=== PATIENT | female | born 1995 | race Caucasian/White ===

== ENCOUNTER 2017-01-17 22:13 | Emergency (ER) | payer BC ==
--- NOTE | 2017-01-18 00:15 | ER Document Report ---
ED Medical Screen (RME) - General Stated Complaint: POSSIBLE ABCESS Time seen by provider: 00:10 Mode of Arrival: Ambulatory Information source: Patient Notes: 21-year-old female presents to ED for an abscess to her right lower abdomen she first noticed at 8 PM today. States she felt like she had a fever couple hours after that but she did not take her temperature. She's had abscesses before. Temperature is 99.1 in RME. Last menstrual period 12/28/2016. Patient states she is on Adderall and took that first thing this morning I have greeted and performed a rapid initial assessment of this patient. A comprehensive ED assessment and evaluation of the patient, analysis of test results and completion of medical decision making process will be conducted by an additional ED providers. - Related Data Allergies/Adverse Reactions: No Known Allergies Allergy (Verified 01/18/17 00:10) Physical Exam - Vital signs Vitals: Temp Pulse Resp BP Pulse Ox 99.1 F 126 H 18 111/73 99 01/17/17 23:04 01/17/17 23:04 01/17/17 23:04 01/17/17 23:04 01/17/17 23:04 Course - Vital Signs Vital signs: Temp Pulse Resp BP Pulse Ox 99.1 F 126 H 18 111/73 99 01/17/17 23:04 01/17/17 23:04 01/17/17 23:04 01/17/17 23:04 01/17/17 23:04
[2017-01-18] MEDS ORDERED: IBUPROFEN 600 MG TABLET PO ONE (00:16)
[2017-01-18] MEDS ORDERED: CLINDAMYCIN 600 MG/D5W RTU 50 ML IV ONE (00:26)
[2017-01-18] MEDS ORDERED: DEXAMETHASONE SOD PHOS INJ 10 MG/1 ML VIAL IV ONE (00:26)
[2017-01-18] MEDS ORDERED: MORPHINE SULFATE 10 MG/ML INJ IV ONE (00:26)
[2017-01-18] MEDS ORDERED: NORMAL SALINE 1000 ML 1,000 ML IV ONE (01:58)
--- NOTE | 2017-01-18 03:25 | ER Document Report ---
ED General - General Chief Complaint: Abscess Stated Complaint: POSSIBLE ABCESS Mode of Arrival: Ambulatory Notes: Patient is a 21 year old female presents with complaint of pain and swelling to right labia. She's had this once before and received antibiotics and steroids and relieved. She's never had a marsupialization performed. She's not had any fevers. No vomiting. No diarrhea. She says she feels as if her heart is beating fast. She denies any trauma or injuries to the vaginal area. No bleeding. No abnormal discharge. No other complaints at this time. No associated abdominal pain. TRAVEL OUTSIDE OF THE [place] IN LAST 30 DAYS: No - Related Data Allergies/Adverse Reactions: No Known Allergies Allergy (Verified 01/18/17 00:10) Home Medications: Current Home Medications Dextroamphetamine/Amphetamine [Adderall 20 mg Tablet] 1 tab PO QAM 01/18/17 [ History] Past Medical History - General Information source: Patient - Social History Smoking Status: Never Smoker Chew tobacco use (# tins/day): No Frequency of alcohol use: None Drug Abuse: None Family History: Reviewed & Not Pertinent Renal/ Medical History: Denies: Hx Peritoneal Dialysis Review of Systems - Review of Systems Notes: My Normal Review Basic REVIEW OF SYSTEMS: CONSTITUTIONAL : Denies fever, chills, or sweats. Denies recent illness. EENT: Denies eye, ear, throat, or mouth pain or symptoms. Denies nasal or sinus congestion. RESPIRATORY: Denies cough, cold, or chest congestion. Denies shortness of breath, difficulty breathing, or wheezing. GASTROINTESTINAL: Denies abdominal pain. Denies nausea, vomiting, or diarrhea. Denies constipation. Last BM: GENITOURINARY: Denies difficulty urinating, painful urination, burning, frequency, or blood in urine. FEMALE GENITOURINARY: Right-sided labial swelling. MUSCULOSKELETAL: Denies neck or back pain or joint pain or swelling. SKIN: Denies rash or skin lesions. NEUROLOGICAL: Denies altered mental status or loss of consciousness. Denies headache. Denies weakness or paralysis or loss of use of either side. Denies problems with gait or speech. Denies sensory or motor loss. ALL OTHER SYSTEMS REVIEWED AND NEGATIVE. Physical Exam - Vital signs Vitals: Temp Pulse Resp BP Pulse Ox 99.1 F 126 H 18 111/73 99 01/17/17 23:04 01/17/17 23:04 01/17/17 23:04 01/17/17 23:04 01/17/17 23:04 - Notes Notes: General Appearance: Well nourished, alert, cooperative, no acute distress, mild obvious discomfort. Vitals: reviewed, See vital signs table. Eyes: PERRL, EOMI, Conjuctiva clear Lungs: No wheezing, No rales, No rhonci, No accessory muscle use, good air exchange bilaterally. Heart: Tachycardic rate, Regular rythm, No murmur, no rub Abdomen: Normal BS, soft, No rigidity, No abdominal tenderness, No guarding, no rebound, no abdominal masses, no organomegaly Pelvic: Patient does have some swelling of the right labia. It is you more formed and swelling. She is mildly erythematous. It's not deep erythema. There is no palpable abscess. There is no localized inflamed Bartholin's gland that is seen to be drained. Extremities: strength 5/5 in all extremities, good pulses in all extremities, no swelling or tenderness in the extremities, no edema. Skin: warm, dry, appropriate color, no rash Neuro: speech clear, oriented x 3, normal affect, responds appropriately to questions. Course - Vital Signs Vital signs: Temp Pulse Resp BP Pulse Ox 99.1 F 146 H 14 103/68 100 01/17/17 23:04 01/18/17 00:16 01/18/17 03:01 01/18/17 03:01 01/18/17 03:01 - Transfer of Care Notes: 01/18/17 04:34 At this time I feel the patient safe to be discharged home. Her heart rate is much improved after pain medicine and fluids. She looks well. Also concerned because the labia is very uniformly swollen and not deep red acute expect with a infection affected cyst. Also place her on antibiotics. She's had this in the past and box have helped. It was a uniformly swollen and I did not see an actual incisable Bartholin's gland; therefore, I was concerned that this could be a hernia. I did obtain CT scan and there is no evidence of hernia. This summer for the patient safe to be discharged home. I strongly encouraged to return to ER immediately if she has fevers, increased swelling, or feels unwell. [facility]. She agrees with plan will be discharged home. Dictation of this chart was performed using voice recognition software; therefore, there may be some unintended grammatical errors. Discharge - Discharge Clinical Impression: Labial swelling Condition: Good Disposition: HOME, SELF-CARE Instructions: Oral Narcotic Medication ([facility]) Additional Instructions: PLease make appointment with the charge coordinator, Dr. Chen, for reevaluation. Please return to ER immediately if you have increased swelling, any fevers, you vomiting, diarrhea, or feel unwell. Prescriptions: Clindamycin HCl 300 mg PO ASDIR #56 capsule Hydrocodone/Acetaminophen [[place] 5-325 mg Tablet] 1 tab PO Q4 PRN #16 tablet PRN Reason: For [facility] Pain Forms: Return to Work Referrals: SHANNON CHEN MD [ACTIVE STAFF] - Follow up tomorrow
[2017-01-18 03:52] VITALS: BP 103/68
== END 2017-01-18 04:44 | disposition home or self-care (01) ==
LOC: ER 22:13
DX: N76.4 Abscess of vulva (principal); Z79.899 Other long term (current) drug therapy
CPT/HCPCS: 99283; 74176; J2270; J1100

== ENCOUNTER → 2018-12-28 | Outpatient (CLI) | payer OTHER ==
--- NOTE | 2018-12-28 17:18 | RADIOLOGY REPORT (SQ) ---
EXAM DESCRIPTION: C SP 4 OR 5 VIEWS COMPLETED DATE/TIME: 12/28/2018 4:49 pm REASON FOR STUDY: NECK PAIN M54.2 CERVICALGIA COMPARISON: None. NUMBER OF VIEWS: Five views. TECHNIQUE: AP, lateral, obliques and odontoid radiographic images acquired of the cervical spine. LIMITATIONS: None. FINDINGS: MINERALIZATION: Normal. ALIGNMENT: Anatomic. VERTEBRAE: Vertebral bodies of normal height. DISCS: No significant osteophytes or sclerosis. Disc height maintained. FORAMINA: No osteophytes or foraminal narrowing. LATERAL AND POSTERIOR ELEMENTS: Facets, lateral masses and spinous processes without significant find ings. HARDWARE: None in the spine. SOFT TISSUES: No masses or calcifications. Lung apices clear. OTHER: No other significant finding. IMPRESSION: NO SIGNIFICANT RADIOGRAPHIC FINDING IN THE CERVICAL SPINE. TECHNICAL DOCUMENTATION: JOB ID: [id number] [employer] All Rights Reserved Reading location - IP/workstation name: [email or web address]
== END ==
LOC: OD 16:17
PROVIDERS: ATTEND Physician Assistant
DX: M54.2 Cervicalgia (principal)
CPT/HCPCS: 72050